=== PATIENT | female | born 1970 | race Two or more races ===

== ENCOUNTER 2023-11-10 14:33 | Inpatient (IN) | payer MEDICAID, OTHER ==
[~2023-11-10] VITALS: Ht 154.9 cm; Wt 50.2 kg
[2023-11-10 14:57] LABS: Basophils # (auto) 0.1 10 ^3/uL (0-0.2); Eosinophils # (auto) 0.1 10 ^3/uL (0-0.8); Hematocrit 43.3 % (36.0-46.0); Hemoglobin 14.4 g/dL (12.2-16.2); Lymphocytes % (auto) 35.4 % (10.0-50.0); Mean Corpuscular Hgb Conc. 33.2 g/dL (32.0-36.0); Mean Corpuscular Volume 90.1 fL (80.0-100.0); Monocytes # (auto) 0.4 10 ^3/uL (0-1.3); Monocytes % (auto) 7.6 % (0.0-12.0); Neutrophils # (auto) 3.1 10 ^3/uL (1.6-8.6); Nucleated Red Blood Cells % 0.1 %; Red Blood Cells 4.81 10^6/uL (4.0-5.20); Red Cell Distribution Width 13.4 % (11.8-14.3); White Blood Cell 5.7 10^3/uL (4.4-10.8)
[2023-11-10 15:15] LABS: Alanine Aminotransferase 27 U/L (7-40); Albumin 4.1 g/dL (3.2-4.8); Alkaline Phosphatase 61 U/L (46-116); Anion Gap 4 (5-15); Aspartate Aminotransferase 19 U/L (13-40); BUN/Creatinine Ratio 14.1 (10.0-20.0); Bilirubin, Total 0.4 mg/dL (0.2-1.0); Blood Urea Nitrogen 11 mg/dL (9-23); Calcium 10.1 mg/dL (8.5-10.1); Carbon Dioxide 30 mmol/L (20-30); Chloride 106 mmol/L (98-107); Glucose 100 mg/dL (74-106); Potassium 3.9 mmol/L (3.5-5.1); Sodium 140 mmol/L (136-145); Total Protein 7.2 g/dL (5.7-8.2)
[2023-11-10] MEDS: ASPirin 325 MG TAB PO ONE (15:45)
[2023-11-10 16:16] LABS: Urine Bacteria None Seen /hpf (None Seen); Urine WBC None Seen /hpf (0 - 5)
[2023-11-10 16:26] LABS: Urine Blood Negative /uL (Negative); Urine Clarity Clear (Clear); Urine Color Colorless (Yellow); Urine Protein, UAD Negative (Negative); Urine Specific Gravity 1.005 (1.001-1.035); Urine Urobilinogen Normal (Negative)
[2023-11-10 16:52] LABS: Amphetamine Screen, Urine Neg (NEGATIVE); Benzodiazephine Screen, Urine Neg (NEGATIVE)
[2023-11-10 16:53] LABS: Barbiturate Scree,Urine Neg (NEGATIVE); Cannabinoid Screen, Urine Neg (NEGATIVE); Cocaine Screen, Urine Neg (NEGATIVE); Opiate Scree,Urine Neg (NEGATIVE); Phencyclidine Screen, Urine Neg (NEGATIVE)
[2023-11-10] MEDS: IOHEXOL 350 MG/ML 100ML IJ ONE (17:30)
[2023-11-10] MEDS: NITROGLYCERIN 0.4 MG SL TAB SL ONE (17:30)
[2023-11-10] MEDS ORDERED: NITROGLYCERIN 0.4 MG SL TAB SL PRN (22:30)
[2023-11-10] MEDS ORDERED: MORPHINE SULFATE INJ 2 MG/ml SYRG IV PRN ×2 (22:30)
[2023-11-10] MEDS ORDERED: HYDROcodone-ACET 5/325MG TAB PO PRN (22:30)
[2023-11-10] MEDS ORDERED: ONDANSETRON HCL 4 MG/2 ML VIAL IV PRN (22:30)
[2023-11-10] MEDS ORDERED: ACETAMINOPHEN 325 MG TAB PO PRN (22:30)
[2023-11-10] MEDS ORDERED: DOCUSATE SOD 100 MG CAP PO PRN (22:30)
[2023-11-10] MEDS ORDERED: hydrALAZINE HCL 20 MG/ML VL IV PRN (22:30)
[2023-11-11 06:07] LABS: Basophils # (auto) 0 10 ^3/uL (0-0.2); Basophils % (auto) 0.9 % (0.0-2.0); Eosinophils # (auto) 0.2 10 ^3/uL (0-0.8); Eosinophils % (auto) 3.7 % (0.0-7.0); Hematocrit 41.2 % (36.0-46.0); Hemoglobin 13.7 g/dL (12.2-16.2); Lymphocytes # (auto) 1.9 10 ^3/uL (0.4-5.4); Lymphocytes % (auto) 32.6 % (10.0-50.0); Mean Corpuscular Hemoglobin 29.8 pg (28.0-32.0); Mean Corpuscular Hgb Conc. 33.3 g/dL (32.0-36.0); Mean Corpuscular Volume 89.7 fL (80.0-100.0); Monocytes # (auto) 0.5 10 ^3/uL (0-1.3); Monocytes % (auto) 9.1 % (0.0-12.0); Neutrophils # (auto) 3.1 10 ^3/uL (1.6-8.6); Neutrophils % (auto) 53.7 % (37.0-80.0); Red Cell Distribution Width 13.8 % (11.8-14.3); White Blood Cell 5.7 10^3/uL (4.4-10.8)
[2023-11-11 06:16] LABS: Chloride 106 mmol/L (98-107); Potassium 3.9 mmol/L (3.5-5.1); Sodium 140 mmol/L (136-145)
[2023-11-11 06:17] LABS: Anion Gap 4 (5-15); Calcium 9.4 mg/dL (8.5-10.1); Carbon Dioxide 30 mmol/L (20-30)
[2023-11-11 06:22] LABS: BUN/Creatinine Ratio 11.4 (10.0-20.0); Blood Urea Nitrogen 9 mg/dL (9-23); Glucose 85 mg/dL (74-106)
[2023-11-11 11:04] VITALS: PULSE 78; RESP 20; O2SAT 96
[2023-11-11 12:01] VITALS: BP 123/71; PULSE 65; RESP 16; TEMP 98; O2SAT 98
[2023-11-11] MEDS ORDERED: CONJ.6252 PO (12:24)
[2023-11-11] MEDS: ENOXAPARIN SOD 40 MG/0.4 ML SYRINGE SC SCH (12:35)
[2023-11-11] MEDS: ASPirin 81 mg TAB PO SCH (12:35)
[2023-11-11] MEDS ORDERED: TROL10CR33 EX (15:19)
[2023-11-11 16:05] LABS: Triglycerides 78 mg/dL (< 150)
[2023-11-11 16:06] LABS: LDL Cholesterol 108 mg/dL (< 100)
[2023-11-11 16:07] LABS: Cholesterol 191 mg/dL (< 200); HDL Cholesterol 70 mg/dL (40-59)
[2023-11-11 18:06] VITALS: PULSE 67; RESP 18; O2SAT 97
[2023-11-11 18:38] VITALS: BP 149/83; PULSE 63; RESP 18; TEMP 98; O2SAT 98
[2023-11-11 20:00] VITALS: BP_SYST 149; BP_SYST 161; BP_DIAS 83; BP_DIAS 88; PULSE 63; PULSE 67; PULSE 75; PULSE 78; RESP 16; RESP 18; RESP 20; TEMP 97.9; TEMP 98; O2SAT 99
[2023-11-11 21:00] VITALS: BP 149/83; PULSE 63; RESP 18; TEMP 98; O2SAT 98
[2023-11-12 01:00] VITALS: BP 102/56; PULSE 67; RESP 20; TEMP 97.9; O2SAT 95
[2023-11-12 05:00] VITALS: BP 105/58; PULSE 71; RESP 20; TEMP 98.1; O2SAT 96
[2023-11-12 07:00] LABS: Anion Gap 2 (5-15); Carbon Dioxide 30 mmol/L (20-30); Chloride 107 mmol/L (98-107); Sodium 139 mmol/L (136-145)
[2023-11-12 07:03] LABS: Calcium 9.1 mg/dL (8.7-10.4)
[2023-11-12 07:07] LABS: Glucose 90 mg/dL (74-106)
[2023-11-12 07:08] LABS: BUN/Creatinine Ratio 12.9 (10.0-20.0); Blood Urea Nitrogen 9 mg/dL (9-23)
[2023-11-12 08:00] VITALS: BP 149/83; PULSE 57; PULSE 63; RESP 16; RESP 18; TEMP 98; O2SAT 99
[2023-11-12 08:42] VITALS: BP 124/87; PULSE 70; RESP 17; TEMP 97.8; O2SAT 98
[2023-11-12] MEDS: ADENOSINE 42 MG in GIVE UN-DILUTED 0 ML IV ONE (11:17)
[2023-11-12 13:00] VITALS: BP 126/82; PULSE 64; RESP 16; TEMP 97.7; O2SAT 99
[2023-11-12] MEDS ORDERED: PANT40TA57 PO (14:53)
[2023-11-12] MEDS ORDERED: COLC1CAP PO (15:35)
== END 2023-11-12 16:45 | disposition home or self-care (01) | DRG 243 ==
LOC: ER 14:33 → TELE 22:33 → TELE-E-ADS 11-11 11:36 → TELE-WESTW 11-11 17:40
PROVIDERS: ADMIT Nurse Practitioner Family; ATTEND Nurse Practitioner Family
DX: K21.9 Gastro-esophageal reflux disease without esophagitis (principal); F41.9 Anxiety disorder, unspecified; M94.0 Chondrocostal junction syndrome [Tietze]; R79.89 Other specified abnormal findings of blood chemistry; Z79.899 Other long term (current) drug therapy
CPT/HCPCS: 36415; 71046; 71275; 78452; 80048; 80053; 80061; 80307; 81001; 83036; 83880; 84484; 85025; 85379; 93005; 93017; 93306; G0378; J0153